=== PATIENT | male | born 1995 | race Caucasian/White ===

== ENCOUNTER 2017-08-12 13:26 | Emergency (ER) | payer OTHER ==
[2017-08-12] MEDS: IBUPROFEN 800 MG TAB PO (14:51)
== END 2017-08-12 15:02 | disposition home or self-care (01) ==
LOC: M ED 13:26
DX: M25.462 Effusion, left knee (principal); F17.200 Nicotine dependence, unspecified, uncomplicated
CPT/HCPCS: 73564

== ENCOUNTER 2018-01-12 18:16 | Emergency (ER) | payer OTHER ==
[2018-01-12] MEDS: KETOROLAC TROMETHAMINE 10 MG TAB PO (17:09)
== END 2018-01-12 18:40 | disposition home or self-care (01) ==
LOC: M ED 18:16
DX: S83.206A Unspecified tear of unspecified meniscus, current injury, right knee, initial encounter (principal); S89.91XA Unspecified injury of right lower leg, initial encounter; X50.1XXA Overexertion from prolonged static or awkward postures, initial encounter; Y92.099 Unspecified place in other non-institutional residence as the place of occurrence of the external cause; Y93.01 Activity, walking, marching and hiking; Y99.9 Unspecified external cause status; Z72.0 Tobacco use
CPT/HCPCS: 73564